=== PATIENT | male | born 1990 | race African-American/Black ===

== ENCOUNTER 2017-01-05 02:10 | Inpatient (IN) ==
[2017-01-05] MEDS ORDERED: TYLENOL PO ONE (03:06)
[2017-01-05] MEDS ORDERED: TYLENOL ONE (03:07)
--- NOTE | 2017-01-05 03:33 | PROVIDER DOCUMENTATION ---
HPI-Chest Pain - General Chief Complaint: Chest Pain Stated Complaint: CHEST PAIN Time Seen by Provider: 01/05/17 03:01 Source: patient Allergies/Adverse Reactions: Patient Allergies Allergy/AdvReac Type Severity Reaction Status Date / Time aspirin AdvReac Mild Unknown Verified 01/05/17 06:45 Home Medications: Home Medication List Medication Instructions Recorded Confirmed Last Taken Type CefDINIR [Omnicef] 300 mg PO BID #14 capsule 01/13/17 Unknown Rx Linezolid [Zyvox] 600 mg PO Q12HR #28 tablet 01/13/17 Unknown Rx Sodium Bicarbonate 650 mg PO BID #60 tablet 01/13/17 Unknown Rx - History of Present Illness-CP Location: reports: central Chest Pain Radiation: reports: no radiation Quality of Pain: reports: cramping Severity in ED: mild Onset/Duration: 1-3 hours ago Timing: still present Context/Activities at Onset: reports: light activity Modifying Factors: improves with: nothing Associated Symptoms: reports: weakness Aspirin Treatment Today: no aspirin today Similar Symptoms Previously?: Yes Recently Seen Here or By Another Healthcare Provider: Yes Review of Systems - Adult - REVIEW OF SYSTEMS - ADULT Constitutional: reports: no symptoms reported Eyes: reports: no symptoms reported Ears, Nose, Mouth & Throat: reports: no symptoms reported Cardiovascular: reports: no symptoms reported Respiratory: reports: no symptoms reported Gastrointestinal: reports: no symptoms reported Genitourinary: reports: no symptoms reported Musculoskeletal: reports: no symptoms reported Integumentary: reports: no symptoms reported Neurological: reports: no symptoms reported Psychiatric: reports: no symptoms reported Endocrine: reports: no symptoms reported Hematologic/Lymphatic: reports: no symptoms reported Allergic/Immunologic: reports: no symptoms reported All Other Systems: Reviewed and Negative Past History - Adult - PAST MEDICAL HISTORY-ADULT Review of Records: reports: Old Records Reviewed, Nursing Assessment Review, Medications Reviewed, Social history reviewed & non-contributory. Major Childhood Illnesses: reports: denies history Cardiovascular: reports: denies history Respiratory: reports: denies history Gastrointestinal: reports: denies history Obstetrical/Gynecological: reports: denies history Genitourinary: reports: denies history Musculoskeletal: reports: denies history Neurological: reports: denies history Endocrine/Immune: reports: denies history Other Conditions: reports: denies history - IMMUNIZATION STATUS Childhood Immunizations: See Nurse Assessment Flu Vaccine: See Nurse Assessment - FAMILY HISTORY Family History: reviewed, not pertinent Physical Exam-General - PHYSICAL EXAM-ADULT Initial Vital Signs Reviewed: Yes - CONSTITUTIONAL General Appearance: appears well, alert, no apparent distress - EYES Eyes: PERRL/EOMI, pink conjunctivae - HEAD, EARS, NOSE, MOUTH & THROAT HENMT: normocephalic/atraumatic, moist mucous membranes, normal ENT inspection, TMs normal, pharynx normal - NECK Neck: non-tender, full range of motion, supple, normal inspection - RESPIRATORY Respiratory: chest non-tender, lungs clear, normal breath sounds, no pleuratic chest pain, no respiratory distress, no accessory muscle use - CARDIOVASCULAR Cardiovascular: normal peripheral pulses, regular rate, rhythm, no edema, no gallop, no JVD, no murmur - GASTROINTESTINAL (ABDOMEN) Abdominal Exam: normal bowel sounds, non tender, soft, no organomegaly, no pulsatile mass - LYMPHATIC Lymphatic: no adenopathy - MUSCULOSKELETAL Back Exam: normal inspection, no CVA tenderness, no vertebral tenderness Extremity: normal range of motion, non-tender, normal gait, normal inspection, no pedal edema, no calf tenderness, normal capillary refill, pelvis stable - SKIN Integumentary: normal color, normal turgor, warm/dry - NEUROLOGIC 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 NRSG Communication Order] DIRECTED Care 01/05/17 15:52 Completed Saline Loc NOW Care 01/05/17 03:04 Completed Vital Signs Order Q 8-HR .ASSESS Care 01/05/17 14:54 Active Heart Healthy Diet Diet 01/05/17 14:56 Completed CHEST-2 VIEWS [RAD] Stat Exams 01/05/17 03:04 Completed CHEST-PORTABLE [RAD] Routine Exams 01/06/17 06:00 Completed CTA [ANGIOGRAM/PULMONARY ARTERIES] [CT] Stat Exams 01/05/17 04:36 Completed ABG [RESP] Routine Lab 01/05/17 03:30 Completed ALCOHOL BLOOD Stat Lab 01/05/17 03:41 Completed ANGIOTENSIN CONVERTING ENZYME [[place]] Stat Lab 01/05/17 03:41 Completed BLOOD CULTURE [BLDCUL] Stat Lab 01/05/17 03:35 Completed CBC WITH DIFF [HEME] Routine Lab 01/06/17 05:05 Completed CBC WITH ELECTRONIC DIFF [HEME] Stat Lab 01/05/17 03:41 Completed CK PROFILE [SP CHEM] Stat Lab 01/05/17 03:35 Completed COMPREHENSIVE METABOLIC PANEL [CHEM] Routine Lab 01/06/17 05:05 Completed COMPREHENSIVE METABOLIC PANEL [CHEM] Stat Lab 01/05/17 03:35 Com[address] D-DIMER PL [COAG] Stat Lab 01/05/17 03:[address] Stat Lab 01/05/17 03:50 Completed FREE T4 Stat Lab 01/05/17 03:41 Completed GRAM STAIN [BLDCUL] Stat Lab 01/05/17 03:35 Completed HISTOPLASMA AB [[place]] Stat Lab 01/05/17 10:20 Completed HISTOPLASMA AG BLOOD [[place]] Stat Lab 01/05/17 10:20 Received HISTOPLASMA AG URINE [[place]] Stat Lab 01/05/17 10:20 Completed HIV AB SCREEN [HH] Stat Lab 01/05/17 10:[address] Stat Lab 01/05/17 03:50 Completed MAGNESIUM [CHEM] Stat Lab 01/05/17 03:35 Completed MONO SCREEN [SERO] Stat Lab 01/05/17 03:41 Completed PRO B-NATRIURETIC PEPTIDE Stat Lab 01/05/17 03:41 Com[address]IME WITH INR PL [COAG] Stat Lab 01/05/17 03:[address] [COAG] Stat Lab 01/05/17 03:41 Completed QUANTIFERON [[place]] Stat Lab 01/05/17 10:20 Completed TROPONIN T Stat Lab 01/05/17 03:41 Completed TSH Routine Lab 01/06/17 05:05 Completed TSH Stat Lab 01/05/17 03:41 Completed TSH Stat Lab 01/05/17 03:[address] W/POSS RFLX CULT [URINALYSIS] Stat Lab 01/05/17 03:50 Completed URINE CULTURE [RM] Routine Lab 01/05/17 04:39 Completed URINE DRUG SCREEN PL Stat Lab 01/05/17 03:50 Completed VITAMIN B12 Stat Lab 01/05/17 03:41 Completed 0.9% Sodium Chloride Inj [Ns] 1,000 ml Med 01/05/17 14:54 Discontinued IV 75 mls/hr Acetaminophen [Tylenol] Med 01/05/17 03:07 Discontinued 1,000 mg .ROUTE .STK-MED ONE Acetaminophen [Tylenol] Med 01/05/17 03:06 Discontinued 1,000 mg PO NOW ONE Acetaminophen [Tylenol] Med 01/05/17 14:54 Discontinued 650 mg PO Q6H PRN PRN Albuterol 2.5MG/Ipratrop 0.5MG [Duoneb (A & A)] Med 01/05/17 13:04 Discontinued 3 ml INH NOW ONE Albuterol 2.5MG/Ipratrop 0.5MG [Duoneb (A & A)] Med 01/05/17 15:00 Discontinued 3 ml INH Q2H PRN PRN Albuterol 2.5MG/Ipratrop 0.5MG [Duoneb (A & A)] Med 01/05/17 15:30 Discontinued 3 ml INH RTQ4H Azithromycin 500 mg/Ns [Zithromax 500 mg/Ns] Med 01/05/17 15:00 Discontinued 500 mg in 250 ml IV Q24H CefTRIAXONE 1 GM/NS [Rocephin 1 gm/Ns] Med 01/05/17 15:00 Discontinued 1 gm in 50 ml IV Q24H Enoxaparin [Lovenox] Med 01/05/17 15:00 Discontinued 40 mg SUBQ Q24H Levofloxacin 750 mg/D5w [Levaquin 750 mg/D5w] Med 01/05/17 11:36 Discontinued 750 mg in 150 ml IV NOW Levofloxacin [Levaquin] Med 01/05/17 11:50 Discontinued 750 mg PO NOW ONE Morphine Med 01/05/17 14:59 Discontinued 2 mg IV Q4H PRN PRN Ondansetron [Zofran] Med 01/05/17 14:54 Discontinued 4 mg IV Q4H PRN PRN Aerosol Treatments Routine Oth 01/05/17 15:00 Completed Aerosol Treatments Stat Oth 01/05/17 15:00 Completed Oxygen Device Routine Oth 01/05/17 14:54 Completed Telemetry [OM.EQ] Routine Oth 01/05/17 14:54 Active EKG [EKG] Stat Ther 01/05/17 03:04 Draft Transfer/Admit Order [TRANSFER] Routine Transfer 01/05/17 14:54 Completed Result Diagrams: 01/13/17 06:05 01/13/17 06:05 Departure - Departure Time of Disposition Decision: 02:50 DIAGNOSIS: Pneumonia Disposition: HOME 01 Certified Medical Emergency: Emergent Condition: Stable - Critical Care Note This patient required my direct & personal management of CC.: No
--- NOTE | 2017-01-05 03:45 | EKG Report ---
Test Performed on : 01/05/2017 03:08:48 AM Test Reason : CHEST PAIN Blood Pressure : / mmHG Vent. Rate : 101 BPM Atrial Rate : 101 BPM P-R Int : 186 ms QRS Dur : 090 ms QT Int : 326 ms P-R-T Axes : 050 010 015 degrees QTc Int : 422 ms Sinus tachycardia. Otherwise normal ECG No previous ECGs available Unconfirmed Result
[2017-01-05 03:47] LABS: BE 0.1 mmoll (-3.0-3.0); BLOOD TYPE ARTERIAL; DRAW SITE L RADIAL; METHB 1.3 % (0.0-1.5); O2(CT) 19.7 mL/dL (15.0-23.0); PCO2(98.6) 35 mmHg (35-45); PO2(98.6) 79 mmHg (60-100); SAMPLE BLOOD; SAO2 97.8 % (95.0-100.0); THB 14.8 g/dL (11.5-17.4); pH(98.6) 7.44 (7.35-7.45)
[2017-01-05 03:50] LABS: ALLEN TEST YES; MODALITY ROOM AIR
[2017-01-05 03:50] LABS: MANUAL DIFF NEEDED? NO
[2017-01-05 03:53] LABS: BASO% 0.3 % (0.0-0.8); EOS# 0.63 X1000 (0.0-0.7); EOS% 4.2 % (0.0-10.0); HEMATOCRIT 36.3 % (42.0-52.0); HEMOGLOBIN 12.1 g/dL (14.0-18.0); IMM GRAN# 0.11 X1000 (0.0-0.04); IMM GRAN% 0.7 % (0.0-0.5); LYMPH# 1.53 X1000 (1.2-3.4); LYMPH% 10.2 % (20.5-51.1); MCH 28.1 PG (27-31); MCHC 33.3 g/dL (33-37); MCV 84.2 FL (81-99); MPV 9.9 FL (7.4-10.4); NEUT% 74.6 % (42.2-75.2); PLT 297 X1000 (130-400); RBC 4.31 XMIL (4.7-6.1)
[2017-01-05 04:06] LABS: UR AMPHETAMINES QUAL NONE DETECTED (NONE DETECT); UR BARBITUATES QUAL NONE DETECTED (NONE DETECT); UR BENZODIAZEPIN QUAL NONE DETECTED (NONE DETECT); UR CANNABINOIDS QUAL NONE DETECTED (NONE DETECT); UR COCAINE QUAL NONE DETECTED (NONE DETECT); UR MDMA QUAL NONE DETECTED (NONE DETECT); UR METHADONE QUAL NONE DETECTED (NONE DETECT); UR METHAMPHETAMINE QUAL NONE DETECTED (NONE DETECT); UR OPIATES QUAL NONE DETECTED (NONE DETECT); UR OXYCODONE QUAL NONE DETECTED (NONE DETECT); UR PCP QUAL NONE DETECTED (NONE DETECT); UR TCA QUAL NONE DETECTED (NONE DETECT)
[2017-01-05 04:17] LABS: INR 1.04 (0.86-1.15); PROTIME 13.9 Seconds (12.1-15.5)
[2017-01-05 04:18] LABS: PTT PL 53.8 Seconds (22.6-43.9)
[2017-01-05 04:22] LABS: AGAP 15; ALBUMIN 3.7 g/dL (3.5-5.0); ALKALINE PHOSPHATASE 901 U/L (32-122); BUN 12 mg/dL (8-22); CALCIUM 9.1 mg/dL (8.8-10.2); CHLORIDE 95 mmol/L (98-107); CK PROFILE 193 U/L (24-204); COSMO 262; GOT 71 U/L (10-34); GPT 102 U/L (10-44); MAGNESIUM 2.3 mg/dL (1.5-2.7); POTASSIUM 3.3 mmol/L (3.5-5.1); SODIUM 131 mmol/L (136-145); TCO2 21 mmol/L (25-35); TOTAL PROTEIN 8.3 g/dL (6.3-8.3)
[2017-01-05 04:33] LABS: FREE T4 1.15 ng/dL (0.93-1.70)
[2017-01-05 04:34] LABS: BILIRUBIN URINE 2+ (NEGATIVE); BLOOD URINE TRACE (NEGATIVE); CLARITY SL. CLOUDY (CLEAR); COLOR AMBER; GLUCOSE URINE NEGATIVE (NEGATIVE); LEUKOCYTES URINE 2+ (NEGATIVE); NITRITE URINE NEGATIVE (NEGATIVE); PROTEIN URINE 1+(30 mg/dL) mg/dL (NEGATIVE)
[2017-01-05 04:37] LABS: URINE WBC 20-40 /HPF (<10)
[2017-01-05 04:38] LABS: URINE CULTURE PL NEEDED? YES; URINE EPITHELIAL CELLS <10 /HPF (<10); URINE RBC <10 /HPF (<10)
[2017-01-05 04:39] LABS: URINE SOURCE CLEAN CATCH
[2017-01-05 04:42] LABS: UROBILINOGEN URINE 3+(8 mg/dL)
--- NOTE | 2017-01-05 09:15 | Diag Imaging Result Document ---
PROCEDURE NAME: CHEST-2 VIEWS - 01/05/2017 FRONTAL AND LATERAL CHEST, TWO VIEWS: FINDINGS: Poor inspiratory effort. There are infiltrates bilaterally in the lower lungs. The heart is not enlarged. The vessels are not distended. No pleural effusions. IMPRESSION: Poor inspiratory effort with bibasilar infiltrates.
--- NOTE | 2017-01-05 10:00 | Diag Imaging Result Document ---
PROCEDURE NAME: ANGIOGRAM/PULMONARY ARTERIES - 01/05/2017 CT CHEST WITH INTRAVENOUS CONTRAST: FINDINGS: There is normal opacification of the pulmonary arteries and their major branches. No pleural effusions. Normal thoracic aorta. Heart is borderline mildly prominent. There are multifocal bilateral infiltrates. No bronchiectasis. The spleen is prominent measuring 14.3 cm on limited through the upper abdomen. IMPRESSION: 1. No pulmonary emboli. 2. Multifocal bilateral pneumonia. 3. Mild splenomegaly. A preliminary report was given at 6:07 a.m.
[2017-01-05] MEDS: LEVAQUIN 750 MG/D5W 750 MG/150 ML IVPB IV ONE ×2 (11:36→12:02)
[2017-01-05] MEDS ORDERED: LEVAQUIN PO ONE (11:50)
[2017-01-05] MEDS ORDERED: DUONEB (A & A) INH ONE (13:04)
[2017-01-05] MEDS ORDERED: TYLENOL PO PRN (14:54)
[2017-01-05] MEDS ORDERED: MORPHINE IV PRN (14:59)
[2017-01-05] MEDS ORDERED: DUONEB (A & A) INH PRN (15:00)
[2017-01-05] MEDS: DUONEB (A & A) INH SCH ×3 (15:20→23:32)
--- NOTE | 2017-01-05 15:56 | HISTORY AND PHYSICAL ---
CHIEF COMPLAINT: Chest pain and shortness of breath. HISTORY OF PRESENT ILLNESS: A 26-year-old male with no known past medical history who came to emerging emergency department with a chief complaint of chest pain and shortness of breath. This patient was seen 2 weeks ago and he was diagnosed with pneumonia. He was sent home with p.o. antibiotics, azithromycin. As per the patient, he felt a little bit better, but then he started declining again, so he decided to come back today again. He denies fever. He has chills. No nausea. No vomiting. No constipation. No diarrhea. This patient states that nobody at home or work has the same medical condition. In the emergency department, they performed a CT of the chest that showed multifocal bilateral pneumonia and mild splenomegaly. Also, the laboratory work showed a WBC of 15, an elevated D-dimer, and elevated liver function tests. Urinalysis also showed 2+ WBC, urine microscopic WBCs between 20 and 40, and bacteria 3+. PAST MEDICAL HISTORY: Patient denies any medical history. PAST SURGICAL HISTORY: None. FAMILY HISTORY: Patient was adopted. SOCIAL HISTORY: This patient lives alone. He denies any smoking or history of illegal drugs. He drinks occasionally, maybe once a month. He works as an entertainer. He is for sure a secondhand smoker on a constant basis. ALLERGIES: No known allergies. HOME MEDICATIONS: None. REVIEW OF SYSTEMS: General: This patient is having flu-like symptoms. He denies fever. No weight changes. The rest of the 14 systems reviewed were evaluated and all of them negative except as per HPI. Vital Signs: Temperature 100.7, pulse 101, respiratory rate 26, blood pressure 110/60, and oxygen saturation 95% on room air. HEENT: Head is normocephalic. No trauma. PERRLA. Neck: Supple. No JVD. No masses. Central trachea. Chest: Bilateral diffuse rhonchi and decreased breath sounds, mostly at the bases. Cardiovascular: RRR. No murmurs. Tachycardic. Abdomen: Soft, obese, nontender, nondistended. No hepatosplenomegaly. Extremities: No edema. No clubbing. No cyanosis. Neurological: The patient is alert and oriented x3. No focal neurological deficits. LABORATORY: WBC 15, hemoglobin 12.1, hematocrit 36.3, platelets 297,000. D-dimer 3.1. Sodium 131, potassium 3.3, chloride 95, bicarbonate 21, BUN 12, creatinine 1.2 glucose 98, calcium 9.1, magnesium 2.3, total bilirubin 2.9, AST 71, ALT 102, alkaline phosphatase 901. ASSESSMENT AND PLAN: 1. Bilateral multifocal pneumonia. I will put this patient on ceftriaxone and azithromycin, I am not quite sure that this patient took his medications as prescribed. I will continue with oxygen supplementation and breathing treatment. Blood culture, throat culture, and urine culture are pending. 2. Possible urinary tract infection. This patient has bacteria and WBCs in the urine. I have placed this patient on antibiotics already. He is getting ceftriaxone. So far, urine culture has been negative. 3. Hyponatremia. Probably, this patient is a little bit dehydrated. This patient will be placed on normal saline. 4. Hypokalemia. Will monitor. The potassium today is 3.3. 5. Elevated D-dimer. We had a CT angiogram performed that did not show any pulmonary emboli. He is not complaining of lower extremity pain. Will monitor. 6. Elevated liver function tests. We will place this patient on fluids. I will ask again for CMP tomorrow. On his last one done a couple of weeks ago, also the alkaline phosphatase was elevated. He had at that time an abdominal and pelvic ultrasound that did not show any abnormality at the level of the abdomen. Also, an abdominal ultrasound was performed with no evidence of acute disease. Will monitor. cc: Howard Arechiga MD
[2017-01-05] MEDS: NS 1,000 ML IV SCH (16:30)
[2017-01-05] MEDS: ZITHROMAX 500 MG/NS 500 MG/250 ML IVPB IV SCH (16:32)
[2017-01-05] MEDS: LOVENOX SUBQ SCH (18:10)
[2017-01-05] MEDS: ROCEPHIN 1 GM/NS 1 GM/50 ML IVPB IV SCH (18:10)
[2017-01-06] MEDS: DUONEB (A & A) INH SCH ×5 (04:11→19:46)
[2017-01-06] MEDS: NS 1,000 ML IV SCH ×2 (04:15→22:24)
[2017-01-06 06:14] LABS: MANUAL DIFF NEEDED? NO
[2017-01-06 06:21] LABS: BASO% 0.2 % (0.0-0.8); EOS# 0.55 X1000 (0.0-0.7); EOS% 4.3 % (0.0-10.0); HEMATOCRIT 35.6 % (42.0-52.0); HEMOGLOBIN 11.6 g/dL (14.0-18.0); IMM GRAN# 0.07 X1000 (0.0-0.04); IMM GRAN% 0.6 % (0.0-0.5); LYMPH# 1.14 X1000 (1.2-3.4); MCH 27.8 PG (27-31); MCHC 32.6 g/dL (33-37); MCV 85.2 FL (81-99); MONO# 1.36 X1000 (0.11-0.59); MONO% 10.7 % (1.7-9.3); MPV 10.8 FL (7.4-10.4); NEUT% 75.2 % (42.2-75.2); PLT 268 X1000 (130-400); RBC 4.18 XMIL (4.7-6.1)
[2017-01-06 06:40] LABS: AGAP 16; ALBUMIN 3.2 g/dL (3.5-5.0); ALKALINE PHOSPHATASE 738 U/L (32-122); BUN 11 mg/dL (8-22); CALCIUM 8.4 mg/dL (8.8-10.2); CHLORIDE 96 mmol/L (98-107); COSMO 266; GOT 52 U/L (10-34); GPT 75 U/L (10-44); POTASSIUM 3.2 mmol/L (3.5-5.1); SODIUM 133 mmol/L (136-145); TCO2 21 mmol/L (25-35); TOTAL PROTEIN 7.1 g/dL (6.3-8.3)
--- NOTE | 2017-01-06 09:30 | Diag Imaging Result Document ---
PROCEDURE NAME: CHEST-PORTABLE - 01/06/2017 PORTABLE CHEST: Compared with 01/05/2017. FINDINGS: Inspiration is somewhat shallow. There has been apparent decrease in ill-defined infiltrate at the right base. There is infiltrate at the left base which appears grossly stable. There is no pleural effusion or pneumothorax identified. Heart size appears normal. IMPRESSION: Shallow inspiration. Decrease in right basilar infiltrate. Stable left basilar infiltrate.
[2017-01-06] MEDS ORDERED: KLOR-CON PO ONE (11:04)
[2017-01-06] MEDS ORDERED: POTASSIUM CHLORIDE 20% LIQUID PO ONE (11:31)
--- NOTE | 2017-01-06 12:22 | PROGRESS NOTE ---
DATE: 01/06/2017 SUBJECTIVE: This patient states that he is feeling better. He is still coughing but compared with yesterday it is not that much. He denies nausea, vomiting, diarrhea, constipation. He is tolerating p.o. OBJECTIVE: Vital Signs: Temperature 99.1 degrees, pulse 102, respiratory rate 18, blood pressure 110/55, oxygen saturation 98 on room air. HEENT: Head normocephalic. No trauma. PERRLA. Neck: Supple. No JVD. No masses. Central trachea. Chest: Bilateral diffuse rhonchi and decreased breath sounds at the bases. Cardiovascular: RRR. No murmurs. Tachycardic. Abdomen: Soft, obese, nontender, nondistended. No hepatosplenomegaly. Extremities: No edema. No clubbing. No cyanosis. Neurological: The patient is alert and oriented x3. No focal neurological deficits. LABORATORY: WBC 12.7, hemoglobin 11.6, hematocrit 35.6, platelets 268,000. Sodium 133, potassium 3.2, chloride 96, bicarbonate 21, BUN 11, creatinine 1.1, calcium 8.4, total bilirubin 2.7, AST 52, ALT 75, alkaline phosphatase 738, TSH 2.0. Free T4 1.1. ASSESSMENT AND PLAN: 1. Bilateral multifocal pneumonia. I will continue with the same management for now. I am not quite sure that this patient took his medications as prescribed. I will continue with oxygen supplementation and breathing treatment. Blood culture, throat culture, and urine culture are negative so far. 2. Possible urinary tract infection. This patient has bacteria and WBCs in the urine. I have placed this patient on antibiotics already. He is getting ceftriaxone. So far the urine culture has been negative. 3. Hyponatremia. We will continue with the same management. His sodium was 131 yesterday. Today it is 133. 4. Hypokalemia. I will replace the potassium today. Today it is 3.2. 5. Elevated D-dimer. We have a CT angiogram performed that did not show any pulmonary emboli. He is not complaining of lower extremity pain. Will monitor. 6. Elevated liver function tests. This patient is on fluids. The liver function tests are better compared with yesterday but still they are high, especially the alkaline phosphatase. He had a couple weeks ago an abdominal and pelvic CT scan that did show any abnormality and also an ultrasound that did not show any problem. I checked his liver function tests from a couple weeks ago and they were about the same. Probably this patient upon discharge should go to a gastroenterology unless the liver function tests are getting worse. cc: Howard Arechiga MD MTDD
[2017-01-06] MEDS: MOTRIN LIQUID PO PRN (16:34)
[2017-01-06] MEDS: ZITHROMAX 500 MG/NS 500 MG/250 ML IVPB IV SCH (16:35)
[2017-01-06] MEDS: LOVENOX SUBQ SCH (16:36)
[2017-01-06] MEDS: ROCEPHIN 1 GM/NS 1 GM/50 ML IVPB IV SCH (18:22)
[2017-01-07] MEDS: DUONEB (A & A) INH SCH ×6 (00:27→19:51)
[2017-01-07] MEDS: NS 1,000 ML IV SCH ×4 (00:30→20:55)
[2017-01-07] MEDS: MOTRIN LIQUID PO PRN ×2 (00:30→09:54)
[2017-01-07] MEDS: ZOFRAN IV PRN ×2 (00:34→21:00)
[2017-01-07 06:05] LABS: MANUAL DIFF NEEDED? NO
[2017-01-07 06:24] LABS: BASO% 0.2 % (0.0-0.8); EOS# 0.55 X1000 (0.0-0.7); EOS% 4.4 % (0.0-10.0); HEMATOCRIT 33.1 % (42.0-52.0); HEMOGLOBIN 10.8 g/dL (14.0-18.0); IMM GRAN# 0.08 X1000 (0.0-0.04); IMM GRAN% 0.6 % (0.0-0.5); LYMPH# 0.82 X1000 (1.2-3.4); LYMPH% 6.5 % (20.5-51.1); MCH 27.8 PG (27-31); MCHC 32.6 g/dL (33-37); MCV 85.1 FL (81-99); MONO# 1.07 X1000 (0.11-0.59); MONO% 8.5 % (1.7-9.3); MPV 10.8 FL (7.4-10.4); NEUT% 79.8 % (42.2-75.2); PLT 262 X1000 (130-400); RBC 3.89 XMIL (4.7-6.1)
[2017-01-07 06:45] LABS: AGAP 12; ALBUMIN 2.9 g/dL (3.5-5.0); ALKALINE PHOSPHATASE 648 U/L (32-122); BUN 12 mg/dL (8-22); CALCIUM 8.3 mg/dL (8.8-10.2); CHLORIDE 104 mmol/L (98-107); COSMO 273; GOT 43 U/L (10-34); GPT 63 U/L (10-44); POTASSIUM 4.2 mmol/L (3.5-5.1); SODIUM 137 mmol/L (136-145); TCO2 21 mmol/L (25-35); TOTAL PROTEIN 6.2 g/dL (6.3-8.3)
[2017-01-07] MEDS ORDERED: MOTRIN LIQUID PO PRN (13:58)
[2017-01-07 14:04] LABS: HIV ANTIBODY SCREEN SEE COMMENTS
[2017-01-07] MEDS: ZITHROMAX 500 MG/NS 500 MG/250 ML IVPB IV SCH (14:06)
--- NOTE | 2017-01-07 16:23 | PROGRESS NOTE ---
DATE: 01/07/2017 SUBJECTIVE: The patient is feeling a little better today. He had a fever last night and again this morning. He still reports having some chills. No nausea, vomiting, or diarrhea. OBJECTIVE: Vital Signs: Blood pressure 139/77, pulse ranging from 92 to 110, respirations 18 to 24, temperature 99.5 degrees, saturation 100% on room air. General Appearance: A morbidly obese black male, in mild distress. HEENT: Anicteric sclerae. Clear conjunctivae. Neck: Supple. No JVD. No bruit. Cardiovascular: S1, S2. Normal rate and rhythm. No murmurs, rubs, or gallops. Pulmonary are clear to auscultation bilaterally. Gastrointestinal: Soft, nontender, nondistended. Normoactive bowel sounds. Musculoskeletal: No clubbing, cyanosis, or edema. LABORATORY DATA: He has a sodium of 137, potassium 4.2, chloride 104, bicarbonate 21, BUN 12, creatinine 1.3, glucose of 96. Liver function tests, ALT and AST mildly elevated, and so is his alkaline phosphatase. White count today is 12.64, hemoglobin 10.8, hematocrit of 33.1, platelets of 262,000. Chest x-ray was done yesterday and showed shallow inspiration, decrease in right basilar infiltrates. 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 He was found to have multifocal pneumonia. 1. Multifocal pneumonia. The patient has fever and is tachycardic. He is on Rocephin and azithromycin. We will keep him on that for now. We may have to escalate his antibiotics if we need to. We also sent a rapid flu test. Cultures have remained negative thus far. We will continue to monitor him and treat the patient symptomatically for community-acquired pneumonia. 2. Morbid obesity. Education provided. 3. Deep vein thrombosis prophylaxis. The patient is on Lovenox. 4. Hyponatremia, resolved. 5. Code status. The patient is a full code.
[2017-01-07] MEDS: LOVENOX SUBQ SCH (17:12)
[2017-01-07] MEDS: ROCEPHIN 1 GM/NS 1 GM/50 ML IVPB IV SCH (17:12)
[2017-01-08] MEDS: DUONEB (A & A) INH SCH ×7 (01:38→23:08)
[2017-01-08] MEDS: ZOFRAN IV PRN (02:37)
[2017-01-08] MEDS: NS 1,000 ML IV SCH ×2 (04:51→16:17)
[2017-01-08 05:48] LABS: MANUAL DIFF NEEDED? NO
[2017-01-08 05:53] LABS: BASO% 0.1 % (0.0-0.8); EOS# 0.58 X1000 (0.0-0.7); EOS% 4.1 % (0.0-10.0); HEMATOCRIT 33.8 % (42.0-52.0); HEMOGLOBIN 11.1 g/dL (14.0-18.0); IMM GRAN# 0.15 X1000 (0.0-0.04); IMM GRAN% 1.1 % (0.0-0.5); LYMPH# 0.75 X1000 (1.2-3.4); LYMPH% 5.3 % (20.5-51.1); MCH 27.8 PG (27-31); MCHC 32.8 g/dL (33-37); MCV 84.7 FL (81-99); MONO# 1.09 X1000 (0.11-0.59); MONO% 7.7 % (1.7-9.3); MPV 10.8 FL (7.4-10.4); NEUT% 81.7 % (42.2-75.2); PLT 269 X1000 (130-400); RBC 3.99 XMIL (4.7-6.1)
[2017-01-08 06:13] LABS: AGAP 15; BUN 15 mg/dL (8-22); CALCIUM 8.3 mg/dL (8.8-10.2); CHLORIDE 102 mmol/L (98-107); COSMO 271; POTASSIUM 4.1 mmol/L (3.5-5.1); SODIUM 135 mmol/L (136-145); TCO2 18 mmol/L (25-35)
--- NOTE | 2017-01-08 11:56 | PROGRESS NOTE ---
DATE: 01/08/2017 SUBJECTIVE: The patient has nausea and vomiting and diarrhea overnight. He is feeling a little better this morning. Denies having any fever or chills. OBJECTIVE: Vital signs: Blood pressure 119/57, pulse of 99, respirations 16, temperature 98.4 degrees, saturation of 97% on room air. General appearance: Obese black male in no acute distress. HEENT: Anicteric sclerae. Clear conjunctivae. Neck: Supple. No JVD. No bruit. Cardiovascular: S1, S2. Normal rate and rhythm. No murmur, rubs, or gallops. Pulmonary: Bilateral faint crackles. Abdomen: Soft, nontender, nondistended. Hypoactive bowel sounds. Musculoskeletal: No clubbing, cyanosis, or edema. LABORATORY: His white count 14.21, hemoglobin 11.1, hematocrit of 33.8, platelets of 269. Chemistry: Sodium 135, potassium 4.1, chloride 102, bicarbonate of 18. BUN 15, creatinine 1.5, glucose of 95. Cultures have remained negative thus far. ASSESSMENT AND PLAN: This is a 26-year-old, morbidly obese, black male admitted to the hospital for community-acquired pneumonia. 1. Community-acquired pneumonia. The patient is on azithromycin and Rocephin. We will keep him on that for now. He has not been having a fever for the past 24 hours. The patient seemed to be improving. Cultures have remained negative thus far. 2. Nausea, vomiting and diarrhea. Will start the patient on a clear liquid diet. We will increase his intravenous fluids from 75 to 100 mL/hour. We will send Clostridium difficile to make sure the patient does not develop Clostridium difficile also on antibiotics. 3. Deep vein thrombosis prophylaxis. Put the patient on Lovenox. 4. Code status. The patient is a full code. DISPOSITION: Once his nausea, vomiting and diarrhea resolved and culture finalized, we can plan to discharge the patient home with Levaquin to complete a 7-day course of antibiotics.
[2017-01-08] MEDS: ZITHROMAX 500 MG/NS 500 MG/250 ML IVPB IV SCH (16:16)
[2017-01-08] MEDS: LOVENOX SUBQ SCH ×2 (16:17→16:30)
[2017-01-08] MEDS ORDERED: IMODIUM PO PRN (17:02)
[2017-01-08] MEDS: ROCEPHIN 1 GM/NS 1 GM/50 ML IVPB IV SCH (18:11)
[2017-01-08] MEDS: TYLENOL PO PRN (19:37)
[2017-01-09] MEDS: DUONEB (A & A) INH SCH ×6 (03:28→23:13)
[2017-01-09] MEDS: NS 1,000 ML IV SCH (03:55)
[2017-01-09 05:30] LABS: MANUAL DIFF NEEDED? NO
[2017-01-09 05:41] LABS: BASO% 0.2 % (0.0-0.8); EOS# 0.46 X1000 (0.0-0.7); EOS% 3.8 % (0.0-10.0); HEMOGLOBIN 9.7 g/dL (14.0-18.0); IMM GRAN# 0.12 X1000 (0.0-0.04); LYMPH% 7.3 % (20.5-51.1); MCH 27.6 PG (27-31); MCHC 32.3 g/dL (33-37); MCV 85.2 FL (81-99); MONO# 1.14 X1000 (0.11-0.59); MONO% 9.3 % (1.7-9.3); MPV 10.4 FL (7.4-10.4); NEUT% 78.4 % (42.2-75.2); PLT 257 X1000 (130-400); RBC 3.52 XMIL (4.7-6.1)
[2017-01-09 05:48] LABS: CALCIUM 7.9 mg/dL (8.8-10.2); POTASSIUM 4.1 mmol/L (3.5-5.1)
--- NOTE | 2017-01-09 10:59 | PROGRESS NOTE ---
DATE: 01/09/2017 SUBJECTIVE: The patient has had only 1 diarrheal stool overnight. He has had no vomiting. His appetite is better today. He did have a temperature of 102 degrees during the night. OBJECTIVE: Vital Signs: Blood pressure is 130/66, with a heart rate of 103, respirations were 18, temperature is 98.6 degrees, with a T-max of 102 degrees over the last 24 hours. Oxygen saturations are 98-100% on room air. General: This is an obese, black male who is sitting on the bed with no distress. HEENT: Head is normocephalic, atraumatic. Pupils equal, round, react to light. EOMs are intact. Sclerae anicteric. Mucous membranes are moist. Neck: Supple. Trachea midline. Cardiovascular: Regular rate and rhythm. S1, S2 appreciated. No rubs, murmurs, or gallops. Pulmonary: He does have some faint crackles in the bases. Chest rises and falls symmetrically with respiration. No increased work of breathing noted. Gastrointestinal: Abdomen is soft, nontender, nondistended with bowel sounds in all 4 quadrants. Extremities: No clubbing, cyanosis, or edema. Pulses are palpable x4. Calves are nontender. Labs: WBC is 12.2, with a hemoglobin of 9.7, hematocrit 30, and platelets of 257,000. Sodium is 135, potassium 4.1, BUN 20, creatinine 2.2, with a glucose of 91. Calcium is 7.9. LFTs are pending. Cultures remain negative thus far. ASSESSMENT AND PLAN: 1. Community-acquired pneumonia. We will continue with the current intravenous antibiotics. Cultures continue negative. 2. Nausea, vomiting, and diarrhea. He only had 1 diarrheal stool. He has had no further vomiting. He has tolerated a clear liquid diet. Eating 75% of his meal. We will be advance to full liquids and follow. 3. Deep venous thrombosis prophylaxis. We will continue Lovenox. Dictated by MEGA Hankins for Joseph Trevizo MD cc: MEGA Hankins MD
[2017-01-09] MEDS ORDERED: NS 1,000 ML ONE (14:51)
[2017-01-09] MEDS: ZITHROMAX 500 MG/NS 500 MG/250 ML IVPB IV SCH (15:32)
[2017-01-09] MEDS: LOVENOX SUBQ SCH (17:13)
[2017-01-09] MEDS: ZOSYN 3.375 GM/NS 3.375 GM/50 ML IVPB IV SCH ×2 (17:13→20:59)
[2017-01-09] MEDS: ZYVOX PO SCH (20:59)
[2017-01-10] MEDS: NS 1,000 ML IV SCH ×3 (01:58→18:06)
[2017-01-10] MEDS: ZOSYN 3.375 GM/NS 3.375 GM/50 ML IVPB IV SCH ×2 (03:19→09:50)
[2017-01-10] MEDS: DUONEB (A & A) INH SCH ×6 (04:52→23:12)
[2017-01-10 06:21] LABS: HEMATOCRIT 30.7 % (42.0-52.0); HEMOGLOBIN 9.9 g/dL (14.0-18.0); MCH 27.3 PG (27-31); MCHC 32.2 g/dL (33-37); MCV 84.8 FL (81-99); MPV 10.2 FL (7.4-10.4); RBC 3.62 XMIL (4.7-6.1)
[2017-01-10 06:43] LABS: ALBUMIN 2.8 g/dL (3.5-5.0); CALCIUM 8.3 mg/dL (8.8-10.2); MAGNESIUM 2.3 mg/dL (1.5-2.7); POTASSIUM 4.1 mmol/L (3.5-5.1); TOTAL BILIRUBIN 2.2 mg/dL (0.20-1.00); TOTAL PROTEIN 6.1 g/dL (6.3-8.3)
--- NOTE | 2017-01-10 10:01 | PROGRESS NOTE ---
DATE: 01/10/2017 SUBJECTIVE: The patient notes that he did okay last night. His diarrhea has improved. He denies any fevers or chills, denies current nausea. He states that he is still having some cough and congestion, still having shortness of breath. PHYSICAL EXAMINATION: Vital signs: He has been afebrile for the past 24 hours. T-max was 102.4 at 1930 on 01/08. Pulse 100 to 113, respiratory 16, BP 138/67, satting 97% on room air. General: The patient is an awake, alert, overweight male who currently is in no respiratory distress. He is pleasant to talk with. HEENT: Normocephalic, atraumatic. Neck: Supple. CV: Tachycardia, no appreciable murmurs. Chest: Decreased breath sounds, positive rhonchi, no appreciable wheezing. Abdomen: Soft, nondistended. Extremities: He moves all extremities. Neurological: No changes. LABS: WBCs 11, hemoglobin and hematocrit 9 and 30. Sodium 131, BUN 23, creatinine 2.7. Total bilirubin 2.2. ALT, AST back to normal at 24 and 33. ASSESSMENT: 1. Leukocytosis, improving. White count has slowly decreased from 14 down to 11. 2. Mild hyponatremia, stable. 3. Hypokalemia, resolved. 4. Acute renal failure, uncertain etiology. His BUN is slightly elevated. His creatinine has continued to climb since the , currently is 2.7. His antibiotics were changed yesterday to attempt to decrease any renal toxicity. Will check an ultrasound. 5. Elevated bilirubin. Check ultrasound of his gallbladder, although his liver function tests have continued to slowly improve. 6. Moderate protein calorie malnutrition. 7. Community acquired pneumonia. 8. Nausea, vomiting, diarrhea. I will advance his diet, as his diarrhea has improved, his vomiting has improved. PLAN: Will discuss with Nephrology his current kidney function and any medication adjustments. cc: Joseph Trevizo MD
[2017-01-10] MEDS ORDERED: MISC. PHARMACY COMMUNICATION SCH (12:00)
[2017-01-10] MEDS: ZYVOX PO SCH ×2 (13:21→20:33)
[2017-01-10] MEDS: ZOFRAN IV PRN (13:25)
--- NOTE | 2017-01-10 13:39 | Diag Imaging Result Document ---
PROCEDURE NAME: US ABDOMEN-COMPLETE - 01/10/2017 ULTRASOUND ABDOMEN COMPLETE: COMPARISON: CT abdomen and pelvis, 12/22/2016. FINDINGS: There is periportal adenopathy, stable from the prior CT. There is splenomegaly. The spleen measures 16.5 x 16 x 5.9 cm. The liver is normal in echotexture. No shadowing gallstones. There is some nonspecific gallbladder wall thickening. The gallbladder is somewhat collapsed. Kidneys are normal. The right kidney measures 14.4 x 6.6 x 6.6 cm. The left kidney measures 15.1 x 6.1 x 6 cm. The pancreas is mostly normal. The common bile duct measures 4 mm. Aorta, IVC, and main portal vein are patent. The urinary bladder is normal. IMPRESSION: 1. Splenomegaly. 2. Periportal lymphadenopathy. 3. Gallbladder is collapsed with mild nonspecific gallbladder wall thickening.
[2017-01-10 14:25] LABS: URINE SOURCE VOIDED
[2017-01-10 14:35] LABS: UR CREAT RANDOM 52.2 mg/dL (14-26)
[2017-01-10 15:01] LABS: BILIRUBIN URINE NEGATIVE (NEGATIVE); BLOOD URINE 1+ (NEGATIVE); CLARITY CLEAR (CLEAR); COLOR YELLOW; GLUCOSE URINE NEGATIVE (NEGATIVE); LEUKOCYTES URINE 1+ (NEGATIVE); NITRITE URINE NEGATIVE (NEGATIVE); PH URINE 6.5; PROTEIN URINE 1+(30 mg/dL) mg/dL (NEGATIVE); URINE MICROSCOPIC NEEDED? YES; UROBILINOGEN URINE NORMAL
[2017-01-10 15:02] LABS: URINE EPITHELIAL CELLS <10 /HPF (<10); URINE RBC <10 /HPF (<10)
--- NOTE | 2017-01-10 16:59 | CONSULTATION ---
DATE OF CONSULTATION: 01/10/2017 REASON FOR ADMISSION: Chest pain with shortness of breath and a recent history of pneumonia. REASON FOR CONSULTATION: Acute kidney injury. CONSULTING PHYSICIAN: Dr. Trevizo. HISTORY OF PRESENT ILLNESS: Mr. Madsen is a 26-year-old, male, who has recently been discharged from [facility], secondary to having a diagnosis of pneumonia. Patient was sent home on azithromycin, at which time he stated he was feeling much better. He started declining within 2-3 days after completing his antibiotic. He presented to [facility] on the with complaints of increased work of breathing. No fever. Positive chills, chronic nausea. Some complaints of constipation. No vomiting , no diarrhea. During that period of time, there was a CT of the chest with contrast that was performed indicating a multifocal bilateral pneumonia and mild splenomegaly. Due to an elevation of his D-dimer and PTT, he also had a chest CT arteriogram with contrast. The patient developed diarrhea during this hospitalization. He complains of nausea. He has been on clear liquids. It is noted that his creatinine 2 weeks ago was 0.9. He came in at 1.1 and it is now at 2.7. During this period of time, he has received antibiotics of Zyvox and Zosyn and has had IV fluids of normal saline at 100 mL an hour in the last 24 hours. His urinalysis appears positive for bacteria and WBCs with no further complaints. PAST MEDICAL HISTORY: Patient denies any. PAST SURGICAL HISTORY: He denies any. FAMILY HISTORY: Patient is adopted. He states that he has no idea what runs in his family. SOCIAL HISTORY: He lives alone. 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 He drinks on occasions, approximately once per month. CURRENT ALLERGIES: No known drug allergies. HOME MEDICATIONS: Listed as none, though he stated he used to take vitamins several months ago. REVIEW OF SYSTEMS: Times 10 with pertinent positives listed above in the HPI. VITAL SIGNS: Most recent vital signs, his last recorded temperature is 98.4, blood pressure 138/67, heart rate 105, respirations are 20. He is on room air. Last recorded saturation 98%. He has had 3150 in, he has had 0 recorded out, though he states he has been voiding. He does not have a urinal at his bedside or in the bathroom. LABS: Sodium 131, potassium 4.1, chloride 101, CO2 of 16, BUN 23, creatinine 2.7, glucose 95. Anion gap 13, calcium 8.3, magnesium 2.3, albumin 2.8. His white count is down to 11.8, hemoglobin 9.9, hematocrit 30.7 with a platelet count of 256,000. His total bilirubin is elevated at 2.2. His TSH on admission was 0.64. His pulmonary arteriogram performed on the with contrast was negative. CT of the abdomen indicated that he had fine splenomegaly with periportal lymphadenopathy and a left nephrolithiasis. PHYSICAL EXAMINATION: General: This is a 26-year-old, male. He is currently resting in a chair. He is in no acute distress. Skin: Warm and dry. HEENT: Normocephalic, atraumatic. Conjunctiva is pink. He has GOD[place]. Mucous membranes are moist. Neck: Supple. Trachea midline. No JVD. Cardiovascular: Regular rate and rhythm. He is slightly tachycardic without murmur or gallop. Lungs: Diminished breath sounds posterior. No appreciable wheezes or rhonchi this afternoon. He remains on equal excursion on room air. Abdomen: Large, round, soft, distended, nontender. Positive bowel sounds. Genitourinary: Not inspected. Patient has been voiding. We will ask him to keep a strict I and O. Extremities: He has trace pretibial edema. These have been dependent. Otherwise no clubbing or cyanosis. Neurological: Alert and oriented x3. ASSESSMENT AND PLAN: 1. Acute renal failure. Likely ATN. Patient has been exposed to chest CT and pulmonary arteriogram contrast in the last week. He has had chronic diarrhea for the last 2-3 days with nausea and has not been eating well. We agree with checking urine electrolytes. He continues on IV fluids at 100 mL an hour. We will change his Zosyn to renal dosing. His Zyvox is appropriate at this time. No further indications for any medication changes. 2. Electrolytes. Patient had mild hypokalemia which appears to have resolved with mild hyponatremia. This remains stable. He remains on normal saline. 3. Acid-base balance. Patient is acidotic today. We will add a low dose of sodium bicarbonate p.o. since patient is now eating. 4. Anemia. This remains low but stable. 5. Community-acquired pneumonia. We will renally dose his antibiotics as indicated. 6. Nausea, vomiting and diarrhea. This is slowly improved. I would to thank you for allowing us to follow with this patient. Data reviewed, discussed with Jessi Michelle on 01/10/17. I agree with the above assessment and plan of care. rg Dictated by MEGA Jewell for Jose Calloway MD cc: MEGA Jewell MD [facility]
[2017-01-10] MEDS: LOVENOX SUBQ SCH (18:06)
[2017-01-10] MEDS: ZOSYN 2.25 GM/NS 2.25 GM/50 ML IVPB IV SCH (18:14)
[2017-01-10] MEDS: SODIUM BICARBONATE PO SCH (20:33)
--- NOTE | 2017-01-10 22:40 | CONSULTATION ---
DATE OF CONSULTATION: 01/10/2017 CONCLUSION: Patient is admitted to the hospital with bibasilar pneumonia. RECOMMENDATIONS: I suggested to place the patient on Zyvox at a dose of 600 mg p.o. every 12 hours and Zosyn 3.375 g IV every 6 hours. Earlier he had been on another IV regimen and it was not getting better, and before that he had been given a course of azithromycin without improvement. DISCUSSION: The patient initially was seen for chest pain and shortness of breath. He was seen in the emergency room and was sent out on azithromycin which he said he took but he did not get any better. His main complaint is that he has lower chest pain which is pleuritic in nature and he also has had shortness of breath. He now feels he is getting better since the change in his antibiotics. His CBC shows a white count of 11,820, hemoglobin 9.9, and platelet count 256,000. Creatinine is 2.67. GFR is 35. The patient's chest x-ray shows bibasilar infiltrates. An abdominal ultrasound shows splenomegaly, lymphadenopathy and collapse of the gallbladder. Stool for C. difficile is negative. Swab for influenza is negative. Antibodies to HIV are negative. Histoplasma antigen and antibody are negative. QuantiFERON TB test is negative. PAST MEDICAL HISTORY/REVIEW OF SYSTEMS: Eyes and ears: He denies difficulty hearing. Neck: No stiffness. Respiratory: He is short of breath now but prior to that he was not having any shortness of breath or chest pain. Cardiac: No left-sided chest pain or palpitations. Gastrointestinal: No nausea, vomiting, or diarrhea. Genitourinary: No dysuria or flank pain. Bones, joints, Muscles: No swollen joints or myalgias. Endocrine: No history of diabetes or thyroid disease. The remainder of the patient's review of systems was completed and was negative. PREVIOUS HOSPITALIZATIONS AND OPERATIONS: None. MEDICAL DISEASES: Negative for diabetes mellitus and hypertension. INFECTIOUS DISEASE HISTORY: Negative for pneumonia and UTI. FAMILY HISTORY: Patient was adopted. SOCIAL HISTORY: The patient lives alone. He sings in a band. He does not smoke but he is exposed to secondhand smoke. He denies using drugs. He rarely drinks alcoholic beverages. ALLERGIES: No known drug allergies. HOME MEDICATIONS: None. PHYSICAL EXAMINATION: Vital Signs: Temperature is 98.8 degrees, pulse 99, respirations 20, blood pressure 120/69, patient weighs 266 pounds. General: This is an obese but otherwise healthy- appearing young male who is in no acute distress. Head, eyes, ears, nose, and throat: He can hear my spoken words and see near objects. There were no white patches in his mouth. Neck: No meningismus. Thorax: No increased AP diameter of the chest. Lungs: Clear to auscultation. Cardiovascular: Heart rate is regular. There is slight edema of the patient's leg. Abdomen: Soft and nontender. Neurologic: Patient is awake. He can move his extremities. There is no tremor. His sensation is intact to touch. His memory as regarding his medical history was intact. ASSESSMENT AND PLAN: I did discuss with the patient safe sex practices. I told him that it would be best not to have intercourse except if he is going to be in a monogamous affair and the female he is going to be with is also committed to that and does not have HIV infection. I told him that if he did have sexual relations he should always wear a condom until he gets . Thank you for the consultation. cc: Diaz Andrea MD
[2017-01-11] MEDS: ZOSYN 2.25 GM/NS 2.25 GM/50 ML IVPB IV SCH ×3 (02:49→17:13)
[2017-01-11] MEDS: DUONEB (A & A) INH SCH ×5 (03:14→19:18)
[2017-01-11] MEDS: NS 1,000 ML IV SCH (05:22)
[2017-01-11 06:30] LABS: ALBUMIN 2.7 g/dL (3.5-5.0); CALCIUM 8.3 mg/dL (8.8-10.2)
[2017-01-11] MEDS: ZYVOX PO SCH ×3 (09:31→21:19)
[2017-01-11] MEDS: SODIUM BICARBONATE PO SCH ×3 (09:31→21:19)
[2017-01-11] MEDS: ZOFRAN IV PRN ×2 (09:31→19:56)
[2017-01-11] MEDS: TYLENOL PO PRN (09:40)
--- NOTE | 2017-01-11 11:39 | PROGRESS NOTE ---
DATE: 01/11/2017 SUBJECTIVE: Patient is sitting up on the side of the bed. He states that he has been able to eat without difficulty. He has a little bit of queasiness this morning, but no overt nausea or vomiting. He has been drinking copious amounts of fluids. He states his urine output has picked up tremendously, although he does have some swelling noted to the lower extremities. OBJECTIVE: Vital Signs: Temperature 99.8 degrees, pulse 103, respiratory rate 19, blood pressure 122/58. Intake 950 mL. Output not measured. Again, patient states that his urine output has picked up. General: A middle-aged young gentleman resting on the side of the bed. He is in no acute distress. Awake, alert, oriented x4. HEENT: Normocephalic, atraumatic. Conjunctivae pink. Oral mucosa moist. Neck: Supple. Trachea midline. There is no JVD. Cardiovascular: Reveals a regular rate and rhythm. There is no murmur or gallop appreciated. Pulmonary: He has equal excursion. He is clear bilaterally. He has no increased work of breathing and is on room air. Abdomen: Soft, with positive bowel sounds. Genitourinary: Not inspected. He is voiding without difficulty. Extremities: He has trace to 1+ pretibial edema. Some pedal edema noted. This appears somewhat dependent. He is moving all extremities. States he is ambulatory in the room without assistance. Integumentary: Skin is warm and dry. There is no rash or lesion. LABORATORY DATA: Sodium 132, potassium 4.0, chloride 102, CO2 of 17, BUN 26, creatinine 3.2. He had occasional eosinophils. He had a FENa score of 2.47. ASSESSMENT AND PLAN: 1. Acute renal injury, acute tubular necrosis as evidenced by his FENa score. He was exposed to arteriogram contrast. His renal function has not improved, but his urine output does appear to have increased. He has no overt uremic symptoms and his laboratories would not warrant dialysis at this time. We remain cautiously optimistic that he will have recovery with simply time. We will continue to follow laboratories closely. 2. Fluid volume. He does have some lower extremity edema, and is eating and drinking well. He states that he is drinking at least 2 L of fluid over the last 24 hours with the hospital cup that has been provided and, as such, we will go ahead and stop his IV fluids so that, hopefully, this lower extremity edema can resolve. 3. Electrolytes, acid-base balance. These are improving. Continue on sodium bicarbonate, low- dose. 4. Community-acquired pneumonia. He is on appropriately dosed antibiotics and we will make no changes. 5. Nausea, vomiting, diarrhea. This has improved significantly. Again, he had no overt nausea or vomiting today, just some slight queasiness, but has been able to eat without difficulty. DISPOSITION: If the patient is discharged to home, he would need to have followup in our office within 2 weeks, along with repeat laboratories in the interim. We will continue to follow him while he remains in the hospital. Thank you for allowing us to participate in the care of this gentleman. Seen, data reviewed, discussed with Silvio Ortiz on 01/11/17. I agree with the above assessment and plan of care. rg Dictated by MEGA Ortiz for Jose Calloway MD cc: Jose Calloway MD [facility]
--- NOTE | 2017-01-11 14:34 | PROGRESS NOTE ---
DATE: 01/11/2017 SUBJECTIVE: The patient states that he feels somewhat better today. The diarrhea has improved. He denies fevers, chills, abdominal pain, or nausea. He still has some cough and congestion and shortness of breath although these are improving. OBJECTIVE: Vital Signs: Blood pressure is 130/67 with a heart rate of 91, respirations are 20, temperature is 99.8 degrees oral with oxygen saturation of 97% to 98% on room air. Cardiovascular: Regular rate and rhythm. S1 and S2 appreciated. Pulmonary: Breath sounds are clear with no increased work of breathing noted. Gastrointestinal: Abdomen is soft, nontender, with bowel sounds in all 4 quadrants. Extremities: No clubbing or cyanosis. He does have some pretibial edema. Calves are nontender. Pulses are palpable x4. Neurologic: He is alert and oriented. LAB: Sodium is 132, potassium 4, BUN 26, creatinine 3.2, with a glucose of 90. [place] is negative. ASSESSMENT: 1. Leukocytosis. We will continue to follow. This is improving. 2. Mild hyponatremia stable. 3. Hypokalemia resolved. 4. Acute renal failure uncertain etiology. He was evaluated by Nephrology who feel this is likely ATN after exposure to the contrast from CT scans as well as the diarrhea and increased oral intake. We will continue as follows and follow with Nephrology. 5. Elevated bilirubin. This continues to improve. Abdominal ultrasound, no splenomegaly and a collapsed gallbladder with mild nonspecific gallbladder wall thickening. No shadowing gallstones. 6. Moderate protein calorie malnutrition. We will encourage p.o. intake. Continue to follow. 7. Community-acquired pneumonia. We will continue with his antibiotics and his pulmonary toilet. 8. Nausea and vomiting, diarrhea. This is improving daily. Dictated by MEGA Hankins for Joseph Trevizo MD cc: MEGA Hankins MD
[2017-01-11] MEDS: LOVENOX SUBQ SCH (17:13)
[2017-01-12] MEDS: DUONEB (A & A) INH SCH ×7 (01:29→23:10)
[2017-01-12] MEDS: ZOSYN 2.25 GM/NS 2.25 GM/50 ML IVPB IV SCH (02:02)
[2017-01-12 06:21] LABS: HEMATOCRIT 29.2 % (42.0-52.0); HEMOGLOBIN 9.5 g/dL (14.0-18.0); MCH 27.4 PG (27-31); MCHC 32.5 g/dL (33-37); MCV 84.1 FL (81-99); MPV 10.2 FL (7.4-10.4); RBC 3.47 XMIL (4.7-6.1)
[2017-01-12 06:33] LABS: ALBUMIN 2.6 g/dL (3.5-5.0); CALCIUM 8.2 mg/dL (8.8-10.2); POTASSIUM 4.1 mmol/L (3.5-5.1); TOTAL BILIRUBIN 1.6 mg/dL (0.20-1.00); TOTAL PROTEIN 6.4 g/dL (6.3-8.3)
[2017-01-12] MEDS: SODIUM BICARBONATE PO SCH ×2 (09:27→20:11)
[2017-01-12] MEDS: OMNICEF PO SCH ×2 (09:27→20:10)
[2017-01-12] MEDS: ZYVOX PO SCH ×2 (09:27→20:11)
--- NOTE | 2017-01-12 11:19 | PROGRESS NOTE ---
DATE: 01/12/2017 SUBJECTIVE: The patient notes that overall he feels better. Denies any current cough or congestion. Denies any fever yesterday. OBJECTIVE: Vital Signs: Temperature 98 degrees, pulse 99-103, respiratory rate 18-20, blood pressure 119/66 to 148/87, saturating 98% on room air. General: The patient is well developed, well nourished, currently in no real respiratory distress. He is awake, alert. He states that he is feeling better. He is able to ambulate the [place] without any difficulty. HEENT: Normocephalic. Neck: Supple. Cardiovascular: Regular rate. Chest: Relatively clear. Abdomen: Soft. LABORATORIES: WBC is 13. Sodium 133, BUN 27, creatinine 3.4, calcium 8.3, bilirubin 1.6, albumin 2.6. ASSESSMENT: 1. Moderate protein calorie malnutrition. 2. Community-acquired pneumonia. He has been afebrile for the past 36 hours. We will change to p.o. Omnicef and p.o. Zyvox, and will follow. 3. Nausea, vomiting, and diarrhea have resolved. 4. Acute renal failure. Patient's creatinine continues to slowly climb, currently is at 3.4. His initial baseline upon presenting to the hospital was 1.1. Uncertain etiology of this. Nephrology is on board. PLAN: Hopefully, patient can be discharged home tomorrow if he remains afebrile on oral antibiotics and will follow up outpatient with Nephrology to continue to follow his kidney function. He will continue sodium bicarbonate for his metabolic acidosis, which is likely related to his renal dysfunction. cc: Joseph Trevizo MD
--- NOTE | 2017-01-12 14:30 | PROGRESS NOTE ---
DATE: 01/12/2017 SUBJECTIVE: Patient resting in bed. Has no complaints this morning. Has been able to eat without difficulty. OBJECTIVE: Vital signs: Temperature 98.7, pulse 99, respiratory rate 18, blood pressure 119/66, intake 2.6 liters, output not measured. General: Well-developed young male resting in bed. No acute distress. HEENT: Normocephalic, atraumatic. Oral mucosa moist. Conjunctivae pink. Neck: Supple. No JVD. Trachea midline. Cardiovascular: Regular rate and rhythm. No murmur or gallop. Pulmonary: Equal excursion. He is clear bilaterally. Abdomen: Soft , positive bowel sounds. Genitourinary: He is voiding. Extremities: No clubbing, cyanosis. He has trace edema. This is improving. Integumentary: Skin is warm and dry without rash or lesion. LABORATORY DATA: WBC of 13.3, hemoglobin 9.5, sodium 133, potassium 4.1, CO2 16 , BUN 27, creatinine 3.4. ASSESSMENT AND PLAN: 1. Acute renal failure, acute tubular necrosis. His creatinine increased slightly over the last 24 hours. However, this was a much smaller increase than previous. It is our hope that he has plateaued with creatinine and that he will begin to have some improvement. Urine output has been adequate per report, although it has not been measured. Reiterated to the patient and the nurse the importance of maintaining output records. 2. Electrolytes, acid-base balance, anemia. These are all stable. 3. Disposition. If the patient goes home tomorrow, he can follow up in our office within the next two weeks for hospital followup. He will need to have labs drawn weekly after discharge and before his followup visit. Dictated by MEGA Ortiz for Jose Calloway MD Data reviewed, discussed with Jerome on 01/12/17. I agree with the above assessment and plan of care. cc: MD REVA Grant
[2017-01-12] MEDS: LOVENOX SUBQ SCH (16:41)
[2017-01-13] MEDS: DUONEB (A & A) INH SCH ×4 (03:16→15:00)
[2017-01-13 06:30] LABS: HEMATOCRIT 31.6 % (42.0-52.0); HEMOGLOBIN 10.3 g/dL (14.0-18.0); MCH 27.2 PG (27-31); MCHC 32.6 g/dL (33-37); MCV 83.6 FL (81-99); MPV 9.9 FL (7.4-10.4); RBC 3.78 XMIL (4.7-6.1)
[2017-01-13 07:00] LABS: ALBUMIN 2.6 g/dL (3.5-5.0); CALCIUM 8.4 mg/dL (8.8-10.2); TOTAL BILIRUBIN 1.6 mg/dL (0.20-1.00); TOTAL PROTEIN 6.8 g/dL (6.3-8.3)
--- NOTE | 2017-01-13 07:17 | Diag Imaging Result Document ---
PROCEDURE NAME: CHEST-2 VIEWS - 01/13/2017 FRONTAL AND LATERAL CHEST, 2 VIEWS: COMPARISON: 01/06/2017. FINDINGS: Poor inspiratory effort. The heart is mildly prominent. No pleural effusions. There are bilateral infiltrates in the lower lungs. Findings are slightly more pronounced in the right base than on the prior exam. IMPRESSION: Bibasilar infiltrates with mild worsening in the right base.
[2017-01-13 07:55] VITALS: BP 141/82
[2017-01-13] MEDS: ZYVOX PO SCH (10:59)
[2017-01-13] MEDS: OMNICEF PO SCH (10:59)
[2017-01-13] MEDS: SODIUM BICARBONATE PO SCH (10:59)
--- NOTE | 2017-01-22 19:12 | DISCHARGE SUMMARY ---
ADMISSION DATE: 01/05/2017 DISCHARGE DATE: 01/13/2017 PHYSICIAN: Joseph Prince. DATE OF ADMISSION: 01/05/2017. DATE OF DISCHARGE: 01/13/2017. DIAGNOSES: 1. Acute renal failure. 2. Acute tubular necrosis. 3. Moderate protein calorie malnutrition. 4. Community-acquired pneumonia. 5. Nausea/vomiting/diarrhea, resolved. CONSULTATIONS: 1. Dr. Jose Calloway, Nephrology. 2. Dr. Diaz Andrea, Infectious Disease. DIAGNOSTICS: 01/05/2017 chest x-ray: Revealed poor inspiratory effort with bibasilar infiltrates. 01/05/2017 pulmonary arteriogram: 1. No pulmonary emboli. 2. Multifocal bilateral pneumonia. 01/06/2017 chest x-ray: Shallow inspiration with a decrease in the right basilar infiltrate. 01/10/2017 abdominal ultrasound: Revealed: 1. Splenomegaly. 2. Periportal lymphadenopathy. 01/13/2017 chest x-ray: Bibasilar infiltrates. HOSPITAL COURSE: Mr. Madsen presented to the emergency room complaining of increasing shortness of breath. He had been diagnosed with pneumonia 2 weeks previously. Sent home on azithromycin. He felt better on discharge. Although over the 2 weeks, he began to decline. Therefore, he presented for a re-evaluation. He was found to have bibasilar pneumonia with a questionable urinary tract infection. Blood cultures revealed no growth in 1 culture after 5 days. Diphtheroids in the other with a negative strep culture and a negative urine culture. Antibiotic coverage of Rocephin and azithromycin were instituted on admission. Being changed to Zyvox and Zosyn, and the patient ultimately being discharged on Omnicef. He did improve respiratory-lynch. He did complaint of nausea, vomiting, and diarrhea. C. difficile was negative. Influenza swabs were negative. HIV antibiotics were negative. Histoplasma antigen and antibody were negative, as well as QuantiFERON-TB test. Dr. Andrea was consulted and did follow with us for antibiotic coverage. On admission he did have a creatinine of 1.2. It did slowly climb up, peaking at 3.4. Nephrology, was consulted, who felt that this was ATN, as he had been exposed to CT chest and pulmonary arteriogram contrast in the week prior, on top of his chronic diarrhea and nausea, with decreased p.o. intake. He was hydrated. We did renal dose medications. He was started on bicarb, per Renal. His creatinine did increase. Renal felt that his creatinine had plateaued and that he would begin to have improvement. They felt that it was safe for the patient to be discharged home to follow up in their office in 2 weeks with weekly labs being drawn. During the hospitalization, we did follow electrolytes and replete as appropriate. PHYSICAL EXAMINATION: Cardiovascular: Regular rate and rhythm. S1 and S2 appreciated. Pulmonary: Breath sounds were clear with no increased work of breathing noted. Gastrointestinal: Abdomen was soft, nontender, nondistended with bowel sounds in all 4 quadrants. Extremities: No clubbing, cyanosis, or edema. Calves nontender and pulses palpable x4. Vital Signs: Blood pressure 141/82 with a heart rate of 96, respirations 17, temperature 98.5 degrees with a room air saturation of 96-100%. DISCHARGE ACTIVITY: As tolerated. DISCHARGE DIET: Regular. DISCHARGE MEDICATIONS: 1. Zyvox 600 mg p.o. every 12 hours. 2. Sodium bicarb 650 p.o. b.i.d. 3. Cefdinir 300 mg b.i.d., with the Zyvox and Cefdinir being for 10 days. FOLLOWUP: 1. He is to follow up with Dr. Calloway 2 weeks with labs being drawn weekly. This will be set up by the office. They will contact the patient. 2. He is to follow up with his primary care physician in 2-3 weeks. DISPOSITION: He was discharged home in stable condition with family members. Dictated by MEGA Hankins for Joseph Trevizo MD cc: MEGA Hankins MD
== END 2017-01-13 17:20 | disposition home or self-care (01) ==
LOC: P.ED 02:10 → P.MEDSURG 02:10 → OBSVTOIN 16:21 → SUATTDRO 16:21
PROVIDERS: ATTEND Family Medicine